=== PATIENT | male | born 1950 | race Caucasian/White ===

== ENCOUNTER → 2016-11-27 | Day surgery (SDC) | payer MEDICARE, BC ==
[~2016-11-27] MED LIST: Lactated Ringers 1,000 ML IV SCH; Propofol 200 MG/20 ML SDV IV ONE
[2016-11-27 10:01] VITALS: BP 121/84
--- NOTE | 2016-11-30 09:12 | OR ---
DATE OF OPERATION: 11/27/2016 PREOPERATIVE DIAGNOSIS: 1. FAMILY HISTORY OF COLON CANCER. 2. HISTORY OF POLYPS. POSTOPERATIVE DIAGNOSIS: 1. FAMILY HISTORY OF COLON CANCER. 2. HISTORY OF POLYPS. SURGEON: Sae Sanders MD PROCEDURE: FULL-LENGTH COLONOSCOPY WITH POLYP REMOVAL X1, POLYP BIOPSY X3. 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 COMPLICATIONS: None. SPECIMEN: 1. Tubular adenoma, ascending colon. 2. Villous adenoma, cecum. FINDINGS: 1. Full-length colonoscopy. 2. Large villous adenoma, cecal pouch. 3. Small tubular adenoma, ascending colon. 4. Sigmoid diverticulosis, moderate. RECOMMENDATIONS: Follow up closely with path report on cecal lesion, may need definitive surgical removal. INDICATIONS: The patient has a family history of colon cancer in his father. He has had a history of polyp removal. He is in for a 3-year followup colonoscopy. DESCRIPTION OF PROCEDURE: The patient was prepped and draped, placed in the left lateral decubitus position. A lubricated Olympus colonoscope was inserted and with ease advanced to the cecum. No gross lesions were seen, but upon irrigation we were able to find that the patient has a large villous lesion quite spread out in the cecal pouch straight along the appendiceal orifice. Initially, we thought to remove with a snare, was quite firm. We elected to biopsy this in 3 separate areas and consideration for a surgical removal in the near future. The ascending colon was benign up until near the hepatic flexure. The patient had a small flat tubular adenoma removed in its entirety with cold forceps biopsy x2. The rest of the transverse and descending colons were unremarkable. Throughout the sigmoid colon, I found no signs of any mass, polyp, ulceration, or bleeding sites. No vascular abnormalities or signs of colitis. There was moderate diverticular disease in the sigmoid colon to the rectosigmoid junction. No other masses or polyps were seen. The rectal vault was benign. Retroflexion of the scope in the rectum showed perianal hemorrhoid disease, otherwise unremarkable. Air was then suctioned. Scope was removed without complication. EYAD/GIIN /[id number]
== END ==
LOC: CC.SDS 07:54
PROVIDERS: ATTEND Family Medicine
DX: Z12.11 Encounter for screening for malignant neoplasm of colon (principal); D12.0 Benign neoplasm of cecum; D12.2 Benign neoplasm of ascending colon; Z91.030 Bee allergy status; E78.5 Hyperlipidemia, unspecified; J45.909 Unspecified asthma, uncomplicated; E55.9 Vitamin D deficiency, unspecified; Z79.82 Long term (current) use of aspirin; Z79.899 Other long term (current) drug therapy
CPT/HCPCS: 45380; J2704; J7120; 00810; 88305

== ENCOUNTER → 2021-02-21 | Day surgery (SDC) | payer MEDICARE, OTHER ==
[~2021-02-21] MED LIST changes: +Ketamine 200 MG/20 ML MDV ONE; -Propofol 200 MG/20 ML SDV IV ONE; +Propofol 200 MG/20 ML SDV ONE; +ePHEDrine 50 MG/ML SDV ONE; +fentaNYL 100 MCG/2 ML SDV ONE
--- NOTE | 2021-02-21 10:45 | OR ---
DATE OF OPERATION: 02/21/2021 PREOPERATIVE DIAGNOSIS: 1. FOLLOWUP POLYPS. 2. FAMILY HISTORY OF COLON CANCER. POSTOPERATIVE DIAGNOSIS: 1. FOLLOWUP POLYPS. 2. FAMILY HISTORY OF COLON CANCER. SURGEON: Sae Sanders MD PROCEDURE: DIAGNOSTIC COLONOSCOPY WITH FORCEPS POLYP REMOVAL X2. ANESTHESIA: MAC. COMPLICATIONS: None. SPECIMEN: Two small sessile polyps, distal transverse colon. FINDINGS: 1. Full-length colonoscopy. 2. Sigmoid diverticulosis, mild to moderate. 3. Two small sessile polyps, 2 to 3 mm, distal transverse colon. 4. No signs of polyp recurrence in cecum. RECOMMENDATIONS: Followup colonoscopy in 5 years. INDICATIONS: Mr. Zabala has a history of a large polyp removed in the past around the cecum. He also has a family history of colon cancer. He is due for routine surveillance scope. DESCRIPTION OF PROCEDURE: The patient was prepped and draped, placed in the left lateral decubitus position. A lubricated Olympus colonoscope was inserted and easily advanced to the cecum. Direct visualization of ileocecal valve and appendiceal orifice was accomplished. The bowel prep was adequate. Upon withdrawal of the scope, the cecum and proximal ascending colon were thoroughly evaluated for any signs of polyp recurrence, there was none. The rest of the ascending colon was benign. In the distal transverse colon, the patient had 2 small sessile polyps, each probably about 2 mm, both removed with forceps without difficulty. The rest of the transverse and descending colons were unremarkable. Sigmoid colon had scattered diverticular disease throughout, mild to moderate in severity, without any inflammatory change. I could find no other polyps, masses, ulceration, or bleeding sites. No vascular abnormalities or signs of colitis. The rectal vault was benign. Retroflexion showed some perianal hemorrhoid disease, otherwise benign. Air was suctioned, scope removed without complication. EYAD/GINI /[id number]
[2021-02-21 11:02] VITALS: BP 119/71; PULSE 60
== END ==
LOC: CC.SDS 08:53
PROVIDERS: ATTEND Family Medicine
DX: Z12.11 Encounter for screening for malignant neoplasm of colon (principal); D12.3 Benign neoplasm of transverse colon; K57.30 Diverticulosis of large intestine without perforation or abscess without bleeding; K64.8 Other hemorrhoids; E78.5 Hyperlipidemia, unspecified; E55.9 Vitamin D deficiency, unspecified; Z86.010 Personal history of colon polyps; Z80.0 Family history of malignant neoplasm of digestive organs; Z91.030 Bee allergy status; Z85.46 Personal history of malignant neoplasm of prostate
CPT/HCPCS: 00812; 45380; 88305; 99100; J2704; J3010; J7120

== ENCOUNTER → 2022-03-12 | Day surgery (SDC) | payer MEDICARE, OTHER ==
[~2022-03-12] MED LIST changes: +Dexamethasone 4 MG/ML SDV ONE; +Ketorolac 30 MG/ML SDV ONE; -Lactated Ringers 1,000 ML IV SCH; +Lidocaine 2% 20 ML MDV ONE; +Midazolam 1 MG/ML 2 ML SDV ONE; +Morphine 4 MG/ML VIAL ONE; +Ondansetron 4 MG/2 ML SDV ONE; -fentaNYL 100 MCG/2 ML SDV ONE; +fentaNYL 50 MCG/ML SDV ONE
[2022-03-12] MEDS: Lactated Ringers 1,000 ML IV SCH (09:30)
[2022-03-12] MEDS: ceFAZolin 2 GM Vial IVPUSH ONE (09:32)
[2022-03-12] MEDS: Lidocaine 1% with EPINEPHrine 1:100,000 20 ML MDV INJECT ONE (10:42)
[2022-03-12 13:13] VITALS: BP 120/67; PULSE 63
== END ==
LOC: CC.SDS 09:07
PROVIDERS: ATTEND Surgery
DX: K42.9 Umbilical hernia without obstruction or gangrene (principal); L72.3 Sebaceous cyst; E78.5 Hyperlipidemia, unspecified; M19.90 Unspecified osteoarthritis, unspecified site; C61 Malignant neoplasm of prostate; Z91.030 Bee allergy status; Z20.822 Contact with and (suspected) exposure to COVID-19; Z79.82 Long term (current) use of aspirin; Z79.899 Other long term (current) drug therapy; Z98.890 Other specified postprocedural states
CPT/HCPCS: 11402; 49585; 88304; J0690; J1100; J1885; J2250; J2270; J2405; J2704; J3010; J7120; U0002

== ENCOUNTER → 2023-03-09 | Day surgery (SDC) | payer MEDICARE, OTHER ==
[~2023-03-09] MED LIST changes: -Dexamethasone 4 MG/ML SDV ONE; -Ketamine 200 MG/20 ML MDV ONE; -Ketorolac 30 MG/ML SDV ONE; +Lidocaine 1% 5 ML VIAL INJECT ONE; -Lidocaine 2% 20 ML MDV ONE; -Midazolam 1 MG/ML 2 ML SDV ONE; -Morphine 4 MG/ML VIAL ONE; -Ondansetron 4 MG/2 ML SDV ONE; -Propofol 200 MG/20 ML SDV ONE; -ePHEDrine 50 MG/ML SDV ONE; -fentaNYL 50 MCG/ML SDV ONE
[2023-03-09 13:30] VITALS: BP 144/85; PULSE 82
== END ==
LOC: CC.SDS 10:54
PROVIDERS: ATTEND Family Medicine
DX: I83.811 Varicose veins of right lower extremity with pain (principal); M19.90 Unspecified osteoarthritis, unspecified site; E78.5 Hyperlipidemia, unspecified; I87.2 Venous insufficiency (chronic) (peripheral); Z79.82 Long term (current) use of aspirin; Z79.899 Other long term (current) drug therapy; Z91.030 Bee allergy status
CPT/HCPCS: A4216; C1888; J3490

== ENCOUNTER 2024-03-24 08:41 | Emergency (ER) | payer MEDICARE, OTHER ==
[2024-03-24 09:25] LABS: BASOPHILS ABSOLUTE AUTO 0.05 10^3/uL (0.00-0.50); BASOPHILS PERCENT AUTO 0.9 % (0-1); EOSINOPHILS ABSOLUTE AUTO 0.11 10^3/uL (0.00-1.50); EOSINOPHILS PERCENT AUTO 1.9 % (0-6); HEMATOCRIT 49.4 % (42.0-52.0); HEMOGLOBIN 16.8 g/dL (14.0-18.0); LYMPHOCYTES ABSOLUTE AUTO 1.79 10^3/uL (0.60-5.00); LYMPHOCYTES PERCENT AUTO 30.9 % (24-44); MEAN CORPUSCULAR HEMOGLOBIN 31.2 pg (27.0-32.0); MEAN CORPUSCULAR VOLUME 91.7 fL (83.0-97.0); MONOCYTES PERCENT AUTO 10.3 % (0-10); NEUTROPHILS ABSOLUTE AUTO 3.25 x10^3/uL (1.80-8.00); PLATELET COUNT,PLT 193 10^3/uL (150-400); RED BLOOD CELL COUNT 5.39 x10^6/uL (4.50-6.00); WHITE BLOOD CELL COUNT,WBC 5.8 10^3/uL (4.0-11.0)
[2024-03-24 09:41] LABS: ALANINE AMINOTRANSFERASE,ALT 25 U/L (12-78); ALBUMIN 4.1 g/dL (3.4-5.0); ALKALINE PHOSPHATASE 95 U/L (46-116); ASPARTATE AMNIOTRANSFERASE,AST 15 U/L (15-37); BILIRUBIN TOTAL 1.1 mg/dL (0.0-1.0); BLOOD UREA NITROGEN,BUN 17 mg/dL (7-18); CALCIUM 9.5 mg/dL (8.4-10.1); CARBON DIOXIDE,CO2 30 mmol/L (21-32); CHLORIDE,CL 105 mEq/L (98-106); CREATININE 1.1 mg/dL (0.7-1.3); GLUCOSE RANDOM 94 mg/dL (75-99); MAGNESIUM 2.2 mg/dL (1.8-2.4); POTASSIUM,K 4.9 mEq/L (3.5-5.0); PROTEIN TOTAL,TP 7.7 g/dL (6.4-8.2); SODIUM,NA 140 mEq/L (136-145)
[2024-03-24 09:42] LABS: C-REACTIVE PROTEIN < 0.50 mg/dL (<=0.50); ESTIMATED GFR 70 mL/min (>=60)
[2024-03-24 14:44] VITALS: BP 131/82; PULSE 51
== END 2024-03-24 13:15 | disposition home or self-care (01) ==
LOC: CC.ED 08:41
DX: R07.81 Pleurodynia (principal); Z79.82 Long term (current) use of aspirin; Z79.899 Other long term (current) drug therapy; Z91.030 Bee allergy status
CPT/HCPCS: 36415; 71046; 80053; 83735; 84484; 85025; 85379; 86140; 93005; 93010; 99284; 99285